=== PATIENT | male | born 1975 | race Caucasian/White ===

== ENCOUNTER 2017-03-17 06:54 | Emergency (ER) | payer SELFPAY ==
[~2017-03-17] VITALS: Ht 182.9 cm; Wt 146.3 kg
[2017-03-17 08:12] LABS: HEMATOCRIT 38.4 % (38.0-50.0); MCH 31.9 PG (29.0-34.0); MCHC 35.9 G/DL (30.0-36.0); MCV 88.7 FL (86-99); MEAN PLAT.VOLUME 9.3 uM^3 (9.0-12.4); PLATELET COUNT 219 K/uL (156-360); RBC DIS.WIDTH-CV 12.3 % (11.8-14.6); RBC DIS.WIDTH-SD 39.9 % (39-53); RED BLOOD COUNT 4.33 M/uL (4.00-5.50); WHITE BLOOD COUNT 6.8 K/uL (4.1-10.2)
[2017-03-17 08:29] LABS: ANION GAP 10 MEQ/L (2-14); CHLORIDE 102 MEQ/L (99-109); SAMPLE HEMOLYSIS CHECK 0; SAMPLE ICTERIC CHECK 0; SAMPLE LIPEMIA CHECK 0; SODIUM 137 MEQ/L (136-147)
[2017-03-17 08:34] LABS: GFR ESTIMATE (CALCULATED) > 59 mL/min/; GLUCOSE 116 mg/dL (70-99); UREA NITROGEN (BUN) 12 mg/dL (9-23)
[2017-03-17 08:39] LABS: TROP-I INTERPRETATION NEGATIVE; TROPONIN-I < 0.01 ng/mL (0.0-0.30)
[2017-03-17] MEDS ORDERED: BACTRIM,SEPT1 TABLET PO (10:53)
[2017-03-17 10:58] VITALS: BP 112/72
[2017-03-17 10:59] LABS: ADD MIUA? NO; BILIRUBIN NEGATIVE; BLOOD NEGATIVE; COLOR STRAW ((YELLOW)); GLUCOSE (STRIP) NEGATIVE; KETONES NEGATIVE; LEUKOCYTES NEGATIVE; NITRITE NEGATIVE; PROTEIN (STRIP) NEGATIVE; SPECIFIC GRAVITY 1.004 (1.000-1.030); UCUL ADDED? NO; UROBILINOGEN 0.2 MG/DL (0.2-1.0)
== END 2017-03-17 11:18 | disposition home or self-care (01) ==
LOC: EME 06:54
PROVIDERS: Emergency Medicine
DX: L03.116 Cellulitis of left lower limb (principal); L03.115 Cellulitis of right lower limb; R94.31 Abnormal electrocardiogram [ECG] [EKG]; F17.200 Nicotine dependence, unspecified, uncomplicated; Z88.7 Allergy status to serum and vaccine
CPT/HCPCS: 80048; 81003; 84484; 85027; 87040; 93005; 99281; 99285